=== PATIENT | female | born 1995 | race African-American/Black ===

== ENCOUNTER 2017-01-01 11:48 | Emergency (ER) | payer SELFPAY ==
[~2017-01-01] VITALS: Ht 149.9 cm; Wt 84.0 kg
[2017-01-01] MEDS ORDERED: SODIUM CHLORIDE 0.9% 1,000 ML IV ONE ×2 (13:07→18:00)
[2017-01-01] MEDS ORDERED: KETOROLAC 30MG/ML VIAL IV ONE (13:15)
[2017-01-01 14:20] LABS: CLARITY URINE CLEAR (CLEAR); COLOR URINE YELLOW (YELLOW); GLUCOSE URINE NEGATIVE (NEGATIVE); KETONES URINE NEGATIVE (NEGATIVE); LEUKOCYTE ESTERASE URINE 1+ (NEGATIVE); NITRITE URINE NEGATIVE (NEGATIVE); OCCULT BLOOD URINE 1+ (NEGATIVE); PH URINE 7.5 (4.5-8.0); PROTEIN URINE NEGATIVE (NEGATIVE); SPECIFIC GRAVITY URINE 1.014 (1.005-1.030)
[2017-01-01 16:45] LABS: BASOPHILS % 0.6 % (0.0-2.0); EOSINOPHILS % 1.9 % (0.0-5.0); HEMATOCRIT. 31.7 % (36.0-48.0); HEMOGLOBIN. 9.9 g/dL (12.0-16.0); LYMPHOCYTES % 27.2 % (20.0-50.0); MEAN CORPUSCULAR HEMOGLOBIN 19.6 pg (28.0-32.0); MEAN CORPUSCULAR VOLUME 63.1 fL (81.0-99.0); NEUTROPHILS % 61.3 % (40.0-76.0); PLATELET 344 x1000/uL (130-400); RED BLOOD CELL COUNT 5.03 mill/uL (4.2-5.4); RED CELL DISTRIBUTION WIDTH 20.6 % (11.6-14.6)
[2017-01-01 16:52] LABS: INR 1.1; PROTHROMBIN TIME 11.3 sec
[2017-01-01 16:53] LABS: HCG SCREEN NEGATIVE
[2017-01-01 17:01] LABS: CARBON DIOXIDE 26 mEq/L (21-32); CHLORIDE 108 mEq/L (98-107); TROPONIN I < 0.02 ng/mL (0.00-0.04)
[2017-01-01] MEDS ORDERED: LORAZEPAM 0.5MG TABLET PO ONE (18:00)
[2017-01-01 19:22] VITALS: BP 119/53
[2017-01-01 19:46] LABS: PLATELET ESTIMATE NORMAL
== END 2017-01-01 20:45 | disposition home or self-care (01) ==
LOC: ER 13:08
DX: R05 Cough (principal); J45.909 Unspecified asthma, uncomplicated; N39.0 Urinary tract infection, site not specified; R00.0 Tachycardia, unspecified; D64.9 Anemia, unspecified; E11.9 Type 2 diabetes mellitus without complications; R07.9 Chest pain, unspecified; Z87.891 Personal history of nicotine dependence; Z91.19 Patient's noncompliance with other medical treatment and regimen; Z98.890 Other specified postprocedural states
CPT/HCPCS: 36415; 71010; 80053; 81001; 81025; 83690; 84484; 84703; 85025; 85610; 87070; 87430; 93005; 96361; 96374; 99285; J1885; J7030; Z7610

== ENCOUNTER 2018-10-30 20:18 | Emergency (ER) | payer MEDICAID ==
[~2018-10-30] VITALS: Ht 149.9 cm; Wt 78.0 kg
[2018-10-30] MEDS ORDERED: FLUORESCEIN SODIUM 1MG/STRIP RIGHTEYE ONE (23:15)
[2018-10-30] MEDS ORDERED: HYDROCODONE/ACETAMINOPHEN 5/325MG TABLET PO ONE (23:15)
[2018-10-30 23:38] VITALS: BP 123/69
== END 2018-10-31 00:45 | disposition home or self-care (01) ==
LOC: ER 20:18
DX: S09.8XXA Other specified injuries of head, initial encounter (principal); S20.219A Contusion of unspecified front wall of thorax, initial encounter; E11.9 Type 2 diabetes mellitus without complications; Z87.01 Personal history of pneumonia (recurrent); Z98.890 Other specified postprocedural states; Y08.89XA Assault by other specified means, initial encounter; Y93.89 Activity, other specified; Y92.89 Other specified places as the place of occurrence of the external cause; Y99.8 Other external cause status
CPT/HCPCS: 71045; 81025; 93005; 99284

== ENCOUNTER → 2024-03-28 | Emergency (ER) | payer MEDICAID ==
[~2024-03-28] VITALS: Ht 149.9 cm; Wt 79.0 kg
[~2024-03-28] MED LIST: LABE100T9 MT; NAPR-679 MT
[2024-03-28 01:13] VITALS: O2SAT 100
[2024-03-28 03:12] LABS: HEMATOCRIT. 30.7 % (36.0-48.0); HEMOGLOBIN. 9.2 g/dL (12.0-16.0); MEAN CORPUSCULAR HGB CONC 30.1 g/dL (31.0-37.0); MEAN PLATELET VOLUME 8.1 fl (7.4-10.4); PLATELET 273 x1000/uL (130-400); RED BLOOD CELL COUNT 4.38 mill/uL (4.2-5.4); RED CELL DISTRIBUTION WIDTH 21.2 % (11.6-14.6)
[2024-03-28 03:13] LABS: DIFFERENTIAL COMMENT 1
[2024-03-28 03:17] LABS: CHLORIDE 108 mEq/L (98-107); POTASSIUM 3.9 mEq/L (3.5-5.1); SODIUM 139 mEq/L (136-145)
[2024-03-28 03:18] LABS: CALCIUM 9.2 mg/dL (8.7-10.4); CARBON DIOXIDE 24 mEq/L (21-32)
[2024-03-28 03:23] LABS: CREATININE 0.8 mg/dL (0.6-1.0); GLUCOSE 103 mg/dL (70-105); UREA NITROGEN BLOOD 7 mg/dL (9-23)
[2024-03-28 03:26] LABS: HCG SCREEN NEGATIVE
[2024-03-28 03:28] LABS: HYPOCHROMASIA 1+; MICROCYTOSIS 2+; PLATELET ESTIMATE NORMAL
[2024-03-28 03:29] LABS: ANISOCYTOSIS 2+
[2024-03-28 04:00] VITALS: BP 159/88; PULSE 94; RESP 19; TEMP 36.61404; O2SAT 98
[2024-03-28] MEDS: HYDROCODONE/ACETAMINOPHEN 5/325MG TABLET PO STA (04:30)
[2024-03-28] MEDS: ONDANSETRON 4MG ODT PO STA (04:30)
== END ==
LOC: ER 00:37
DX: I10 Essential (primary) hypertension (principal); E11.9 Type 2 diabetes mellitus without complications
CPT/HCPCS: 99283; 80048; 84703; 85025; 36415; Q0162